=== PATIENT | male | born 1945 | race Two or more races ===

== ENCOUNTER → 2021-02-27 | Outpatient (CLI) | payer MEDICARE, OTHER ==
--- NOTE | 2021-02-27 16:16 | CARD ---
MR#: [id number] Date of Study: 02/27/2021 Ordering Physician: ANNA REEVES, Referring Physician: ANNA REEVES, Tech: Claritza Kelly RDCS APPROVED REPORT EXAM: Two-dimensional and M-mode echocardiogram with Doppler and color Doppler. Other Information Quality : Good Technically limited study due to oxygen 25/05 INDICATION Congestive Heart Failure 2D DIMENSIONS RVDd3.8 (2.9-3.5cm)Left Atrium(2D)4.4 (1.6-4.0cm) IVSd1.0 (0.7-1.1cm)Aortic Root(2D)3.0 (2.0-3.7cm) LVDd5.8 (3.9-5.9cm)LVOT Diameter2.1 (1.8-2.4cm) PWd1.1 (0.7-1.1cm)LVDs2.8 (2.5-4.0cm) FS (%) 30.0 %SV139.7 ml LVEF(%)60.0 (>50%) Aortic Valve AoV Peak Tereso.225.7cm/sAoV VTI40.2cm AO Peak GR.20.4mmHgLVOT Peak Tereso.133.9cm/s AO Mean GR.13mmHgAVA (VMAX)2.07cm2 TARA (VTI)2.50cm2 Mitral Valve MV E Wgamtksm278.6cm/sMV DECEL [id number] MV A Oegefvts661.9cm/sE/A Ratio0.8 Tricuspid Valve TR P. Hbnbbbjv221ya/sRAP BHYCYJNB0lrOd TR Peak Gr.20qaVsJBHO45zzZj Pulmonary Vein S1 Tlcwkick77.1cm/sD2 Jpjyemyp35.5cm/s LEFT VENTRICLE The left ventricle is normal size. There is normal left ventricular wall thickness. The left ventricu lar systolic function is normal The Ejection Fraction is 55-60%. There is normal LV segmental wall mo tion. Transmitral Doppler flow pattern is Grade I-abnormal relaxation pattern. RIGHT VENTRICLE The right ventricle is normal size. The right ventricular systolic function is normal. ATRIA The left atrium is mildly dilated. The right atrium is mildly dilated. The interatrial septum is inta ct with no evidence for an atrial septal defect or patent foramen ovale as noted on 2-D or Doppler im aging. AORTIC VALVE The aortic valve is mildly thickened but opens well. Doppler and Color Flow revealed no significant a ortic regurgitation. There is no significant aortic valvular stenosis. MITRAL VALVE The mitral valve is calcified but opens well. Mitral annular calcification is mild. There is no evide nce of mitral valve prolapse. There is no mitral valve stenosis. Doppler and Color-flow revealed mild mitral regurgitation. TRICUSPID VALVE The tricuspid valve is normal in structure and function. Doppler and Color Flow revealed mild tricusp id regurgitation. There is moderate pulmonary hypertension. The PA pressure was estimated at 54 mmHg. There is no tricuspid valve stenosis. PULMONIC VALVE The pulmonic valve is not well visualized. Doppler and Color Flow revealed no pulmonic valvular regur gitation. There is no pulmonic valvular stenosis. GREAT VESSELS The aortic root is normal in size. The ascending aorta is normal in size. The IVC is normal in size a nd collapses >50% with inspiration. PERICARDIAL EFFUSION There is no evidence of significant pericardial effusion. Critical Notification Critical Value: No <Conclusion> The left ventricular systolic function is normal The Ejection Fraction is 55-60%. There is normal LV segmental wall motion. Transmitral Doppler flow pattern is Grade I-abnormal relaxation pattern. Mild mitral regurgitation. Mild tricuspid regurgitation. There is moderate pulmonary hypertension. The PA pressure was estimated at 54 mmHg. There is no evidence of significant pericardial effusion. Signed by : Anna Reeves, Electronically Approved : 02/27/2021 16:16:07
== END ==
LOC: ECHO 07:42
PROVIDERS: ATTEND Internal Medicine Cardiovascular Disease
DX: I08.1 Rheumatic disorders of both mitral and tricuspid valves (principal); I50.32 Chronic diastolic (congestive) heart failure; I27.20 Pulmonary hypertension, unspecified
CPT/HCPCS: 93306

== ENCOUNTER 2021-12-02 12:27 | Emergency (ER) | payer MEDICARE, OTHER ==
[~2021-12-02] VITALS: Ht 165.1 cm; Wt 91.1 kg
--- NOTE | 2021-12-02 17:11 | PHYS DOC ---
Past Medical History Additional Past Medical Histor: frequent pneumonia Past Surgical History: Other Additional Past Surgical Histo: extensive lung surgery Smoking Status: Former Smoker Alcohol Use: None General Adult EDM: Chief Complaint: OTHER COMPLAINTS HPI: HPI: Patient is a 76 year old male who presents to the ED today complaining of penile pain and rectal pain that began on last week while masturbating. Patient states he felt something pop out of his rectum. Denies any abdominal pain, denies any rectal bleeding, denies any chest pain, or shortness of breath. Denies having inserting anything in his rectum, he states he was masturbating using his hands which he frequently does. Denies having intercourse with other people. Review of Systems: Review of Systems: Constitutional: Denies fever or chills. [] Eyes: Denies change in visual acuity. [] HENT: Denies nasal congestion or sore throat. [] Respiratory: Denies cough or shortness of breath. [] Cardiovascular: Denies chest pain or edema. [] GI: Reports rectal pain/swelling, denies denies abdominal pain, nausea, vomiting, bloody stools or diarrhea. [] : Reports penile pain. Denies dysuria. [] Musculoskeletal: Denies back pain or joint pain. [] Integument: Denies rash. [] Neurologic: Denies headache, focal weakness or sensory changes. [] Psychiatric: Denies depression or anxiety. [] Heart Score: C/O Chest Pain: N/A Risk Factors: Risk Factors: DM, Current or recent (<one month) smoker, HTN, HLP, family history of CAD, obesity. Risk Scores: Score 0 - 3: 2.5% MACE over next 6 weeks - Discharge Home Score 4 - 6: 20.3% MACE over next 6 weeks - Admit for Clinical Observation Score 7 - 10: 72.7% MACE over next 6 weeks - Early Invasive Strategies Allergies: Allergies: Allergies Coded Allergies Type Severity Reaction Last Updated Verified No Known Drug Allergies 02/28/21 No Physical Exam: PE: Constitutional: Well developed, well nourished, no acute distress, non-toxic appearance. [] HENT: Normocephalic, atraumatic, bilateral external ears normal, oropharynx moist, no oral exudates, nose normal. [] Eyes: PERRLA, EOMI, conjunctiva normal, no discharge. [] Neck: Normal range of motion, no tenderness, supple, no stridor. [] Cardiovascular:Heart rate regular rhythm, no murmur [] Lungs & Thorax: Bilateral breath sounds clear to auscultation [] Abdomen: Bowel sounds normal, soft, no tenderness, no masses, no pulsatile masses. [] Rectal exam External rectum noted for peanut size nonthrombosed hemorrhoid, no palpable in ternal rectum masses noted Male exam Circumcised male with no phimosis or paraphimosis, no penile discharge, patient reports tenderness when he touches his penis and this could be from manipulation during masturbation Skin: Warm, dry, no erythema, no rash. [] Back: No tenderness, no CVA tenderness. [] Extremities: No tenderness, no cyanosis, no clubbing, ROM intact, no edema. [] Neurologic: Alert and oriented X 3, normal motor function, normal sensory function, no focal deficits noted. [] Psychologic: Affect normal, judgement normal, mood normal. [] Current Patient Data: Vital Signs: Vital Signs Date Time Temp Pulse Resp B/P (MAP) Pulse Ox O2 Delivery O2 Flow Rate FiO2 12/02/21 14:22 97.1 107 28 129/57 (81) 90 Nasal Cannula 3.0 97.1 EKG: EKG: [] Radiology/Procedures: Radiology/Procedures: [] Course & Med Decision Making: Course & Med Decision Making Pertinent Labs and Imaging studies reviewed. (See chart for details) This is a 76-year-old male patient presented to the ED today complaining of penile pain and rectal pain from a hemorrhoid that began on after masturbating. Patient instructed to use Anusol for his hemorrhoid, he was instructed to use stool softeners. Urine positive for UTI. He denies any concerns for STDs. He states he is 76 and only masturbates with his hands. Given Rocephin IM in the ED and discharged on Cipro. He will follow up with his own PCP. Marie Disclaimer: Marie Disclaimer: This electronic medical record was generated, in whole or in part, using a voice recognition dictation system. Departure Departure Impression: Primary Impression: UTI (urinary tract infection) Qualified Codes: N39.0 - Urinary tract infection, site not specified; R31.9 - Hematuria, unspecified Additional Impression: Hemorrhoids Qualified Codes: K64.9 - Unspecified hemorrhoids Disposition: HOME / SELF CARE / HOMELESS Condition: STABLE Referrals: KUSH CRUZ (PCP) follow up in one week Patient Instructions: Hemorrhoids, Urinary Tract Infection Additional Instructions: You have urinary tract infection. We put you on antibiotics, ensure you complete them. Use Anusol suppositories or cream for your hemorrhoids, consider stool softeners. Follow-up with your doctor next week. Scripts Hydrocortisone (ANUSOL-HC) 30 Gm Cream..g. 1 KATIE TP TID for 10 Days, #30 GM 0 Refills Prov: JAVED GU APRN 12/02/21 Docusate Sodium (DOCUSATE SODIUM) 100 Mg Capsule 1 CAP PO BID for constipation for 7 Days, #14 CAP 0 Refills Prov: JAVED GU APRN 12/02/21 Ciprofloxacin Hcl (CIPRO) 500 Mg Tablet 1 TAB PO BID for 7 Days, #14 TAB 0 Refills Prov: JAVED GU APRN 12/02/21 JAVED GU APRN Dec 02, 2021 17:11
[2021-12-02 17:20] LABS: BILIRUBIN,URINE NEGATIVE (NEG); CLARITY,URINE CLOUDY; COLOR,URINE YELLOW; NITRITE,URINE NEGATIVE (NEG); PROTEIN,URINE NEGATIVE (NEG-TRACE); UROBILINOGEN,URINE 0.2 mg/dL (0.2 mg/dL)
[2021-12-02 17:33] LABS: WBC,URINE TNTC /HPF (0-4)
[2021-12-02 17:35] LABS: BACTERIA,URINE MODERATE /HPF (0-FEW)
[2021-12-02 17:38] LABS: RBC,URINE OCC /HPF (0-2)
[2021-12-02] MEDS ORDERED: CIPR500T94 PO (18:03)
[2021-12-02] MEDS ORDERED: DOCU100C28 PO (18:03)
[2021-12-02] MEDS ORDERED: HYDR30CR61 TP (18:03)
[2021-12-02] MEDS: LIDOCAINE 1% PF 2 ML VIAL. INJ ONE (18:07)
[2021-12-02] MEDS: cefTRIAXone IM 1 GM VIAL IM ONE (18:07)
[2021-12-02 18:10] VITALS: BP 119/66
== END 2021-12-02 18:12 | disposition home or self-care (01) ==
LOC: ER 12:27
DX: N39.0 Urinary tract infection, site not specified (principal); R31.9 Hematuria, unspecified; K64.9 Unspecified hemorrhoids; Z87.891 Personal history of nicotine dependence
CPT/HCPCS: 81001; 87086; 96372; 99283; J0696; J3490

== ENCOUNTER → 2022-02-26 | Outpatient (CLI) | payer MEDICARE, OTHER ==
[~2022-02-26] MED LIST: CIPR500T94 PO; DOCU100C28 PO; HYDR30CR61 TP
--- NOTE | 2022-02-26 16:20 | CARD ---
MR#: [id number] Date of Study: 02/26/2022 Ordering Physician: ANNA REEVES, Referring Physician: ANNA REEVES Tech: Ayesha Rocha JOSE DAVID APPROVED REPORT EXAM: Two-dimensional and M-mode echocardiogram with Doppler and color Doppler. Other Information Quality : Technically LimitedHR: 99bpm INDICATION Dyspnea RISK FACTORS Hypertension Obesity 2D DIMENSIONS RVDd2.9 (2.9-3.5cm)Left Atrium(2D)4.1 (1.6-4.0cm) IVSd1.1 (0.7-1.1cm)Aortic Root(2D)3.5 (2.0-3.7cm) LVDd5.2 (3.9-5.9cm)LVOT Diameter2.6 (1.8-2.4cm) PWd1.1 (0.7-1.1cm)LVDs3.0 (2.5-4.0cm) FS (%) 41.8 %SV94.0 ml LVEF(%)72.4 (>50%) Aortic Valve AoV Peak Tereso.185.3cm/sAoV VTI38.4cm AO Peak GR.13.7mmHgAO Mean GR.8mmHg Mitral Valve MV E Enseumck14.0cm/sMV DECEL [id number] MV A Xnoyueuf138.9cm/sE/A Ratio0.7 Pulmonary Valve PV Peak Kwqowbgx126.2cm/s Tricuspid Valve TR P. Dflpntci167vg/sTR Peak Gr.30mmHg LEFT VENTRICLE The left ventricle is normal size. There is borderline to mild concentric left ventricular hypertroph y. The left ventricular systolic function is normal. The ejection fraction estimated at 65%. There is normal LV segmental wall motion. Transmitral Doppler flow pattern is Grade I-abnormal relaxation pat tern. RIGHT VENTRICLE The right ventricle is normal size. The right ventricle is borderline hypertrophied. The right ventri cular systolic function is normal. ATRIA The left atrium size is normal. The right atrium size is normal. The interatrial septum is intact wit h no evidence for an atrial septal defect or patent foramen ovale as noted on 2-D or Doppler imaging. AORTIC VALVE The aortic valve is calcified but opens well. Doppler and Color Flow revealed no significant aortic r egurgitation. There is no significant aortic valvular stenosis. MITRAL VALVE The mitral valve is normal in structure and function. There is no evidence of mitral valve prolapse. There is no mitral valve stenosis. Doppler and Color Flow revealed no mitral valve regurgitation note d. TRICUSPID VALVE The tricuspid valve is normal in structure and function. Doppler and Color Flow revealed no tricuspid valve regurgitation noted. There is no tricuspid valve stenosis. GREAT VESSELS The aortic root is normal in size. The ascending aorta is normal in size. The IVC is normal in size a nd collapses >50% with inspiration. PERICARDIAL EFFUSION There is no evidence of significant pericardial effusion. Critical Notification Critical Value: No <Conclusion> The left ventricular systolic function is normal. The ejection fraction estimated at 65%. There is normal LV segmental wall motion. Transmitral Doppler flow pattern is Grade I-abnormal relaxation pattern. There is no evidence of significant pericardial effusion. Signed by : Anna Reeves, Electronically Approved : 02/26/2022 16:19:54
== END ==
LOC: ECHO 09:08
PROVIDERS: ATTEND Internal Medicine Cardiovascular Disease
DX: I35.1 Nonrheumatic aortic (valve) insufficiency (principal); I50.32 Chronic diastolic (congestive) heart failure; I51.7 Cardiomegaly
CPT/HCPCS: 93306; C8929